=== PATIENT | female | born 1955 | race Asian ===

== ENCOUNTER 2018-08-09 06:58 | Day surgery (SDC) | payer OTHER ==
[2018-08-09] MEDS ORDERED: MIDAZOLAM 1 MG/ML 2 ML INJ ×2 (10:25)
[2018-08-09] MEDS ORDERED: FENTAnyl 50 MCG/ML VIAL (10:25)
== END 2018-08-09 10:59 | disposition home or self-care (01) ==
LOC: GIL 06:58
DX: Z12.11 Encounter for screening for malignant neoplasm of colon (principal); K64.8 Other hemorrhoids
CPT/HCPCS: 45378